=== PATIENT | female | born 1985 | race Caucasian/White ===

== ENCOUNTER 2022-06-25 11:34 | Observation (INO) | payer OTHER, SELFPAY ==
[2022-06-25] VITALS (8 sets, daily range): BP systolic 105–110; BP diastolic 70–71; PULSE 86–106; O2SAT 98–100; BMI 25.4
--- NOTE | 2022-06-25 12:22 | OBADM ---
This patient, Angelique Segovia, admitted to the OB room [facility] for observation. Patient/family oriented to hospital policies and general routines including ID bracelet, bed and alarms, visiting hours, pain management, procedures, bathroom and other care routines, personal items, smoking policy, room service/diet, and visiting hours. Patient/Family are encouraged to report perceived risks to care and to ask questions if they do not understand what they are told or what they should do.
--- NOTE | 2022-06-25 12:26 | PC.NURSE ---
1220--Report given to Kirit Helton CNM.VSS.NST appropriate for gestation. ED observation requested.
--- NOTE | 2022-06-25 13:00 | PC.NURSE ---
1240--To ED per wheelchair. Pt tolerates well.
--- NOTE | 2022-07-12 08:14 | PM.OBTRLD ---
OB - Triage/Final Diagnosis Visit Information Comments/Additional reasons for admission: I have assessed the risk for this patient, Angelique Segovia, and determined that she would benefit from observation care. Final Diagnosis (1) Chest pain: Code(s): R07.9 - Chest pain, unspecified Status: Acute
== END 2022-06-25 12:40 | disposition other institution (70) ==
LOC: ANHOBPP 11:42
PROVIDERS: Admitting Provider Obstetrics & Gynecology; Visit Provider Obstetrics & Gynecology
DX: O26.893 Other specified pregnancy related conditions, third trimester (principal); R07.9 Chest pain, unspecified; Z3A.30 30 weeks gestation of pregnancy
CPT/HCPCS: 59025; G0378; G0379

== ENCOUNTER 2022-06-25 12:44 | Emergency (ER) | payer OTHER, SELFPAY ==
[2022-06-25 13:07] VITALS: BP 120/88; PULSE 96; RESP 18; TEMP 36.8; O2SAT 100
[2022-06-25 14:29] LABS: Basophils Absolute Auto 0.1 K/mm3 (0.0-0.1); Basophils Percent Auto 0.5 % (0.2-1.2); Eosinophils Absolute Auto 0.1 K/mm3 (0-0.3); Eosinophils Percent Auto 0.8 % (0-4.4); Hematocrit 38.2 % (37.0-47.0); Hemoglobin 12.4 g/dL (12.0-15.0); Immature Granulocyte Absolute 0.37 K/mm3 (0.00-0.031); Immature Granulocyte Percent A 2.9 % (0-0.5); Lymphocytes Absolute Auto 2.15 K/mm3 (0.9-3.2); Lymphocytes Percent Auto 16.8 % (18.3-44.2); Mean Corpuscular HGB Conc 32.5 g/dl (32-36); Mean Corpuscular Hemoglobin 31.4 pg (26-34); Mean Corpuscular Volume 96.7 fl (80-100); Mean Platelet Volume 10.2 fl (7.4-10.4); Monocytes Absolute Auto 1.1 K/mm3 (0.1-0.6); Monocytes Percent Auto 8.3 % (2.6-8.5); Neutrophils Percent Auto 70.7 % (45.5-73.1); Platelet Count Result 245 k/mm3 (150-375); Red Blood Count 3.95 M/mm3 (4.2-5.4); White Blood Count 12.8 K/mm3 (4.5-10.0)
[2022-06-25 14:42] LABS: Prothrombin Time 12.6 Seconds (11.1-14.7)
[2022-06-25 14:43] LABS: Alanine Aminotransferase 15 U/L (6-35); Albumin Level 3.8 g/dL (3.5-5.1); Alkaline Phosphatase 79 U/L (38-126); Anion Gap 7 mmol/L (8-16); Aspartate Amino Transferase 21 U/L (14-36); Bilirubin,Total 0.4 mg/dL (0.2-1.3); Blood Urea Nitrogen 5 mg/dL (7-17); Calcium 8.8 mg/dL (8.4-10.2); Carbon Dioxide 22 mmol/L (22-30); Chloride 103 mmol/L (98-107); Estimated CRCL calculation 162 ml/min; Estimated Glomerular Filt Rate > 60; Glucose 68 mg/dL (65-110); Lipase 117 U/L (23-300); Partial Thromboplastin Time 26.2 SECONDS (22.3-36.8); Potassium 3.8 mmol/L (3.4-5.0); Sodium 132 mmol/L (137-145)
[2022-06-25 14:53] LABS: Appearance Urine Clear (Clear); Bacteria Urine None Seen /hpf; Bilirubin Urine Negative (Negative); Blood Urine Negative (Negative); Color Urine Yellow (Yellow); Glucose Urine UA Negative (Negative); Ketones Urine Negative (Negative); Leukocyte Esterase Ur Trace LEU/UL (Negative); Need Manual Microscopic Reviewed; Nitrate Urine Negative (Negative); Non Pathogenic Casts 0-2; Protein Urine Negative (Negative); RBC Urine 0-2 /hpf (0-2); Specific Grav Ur 1.003 (1.001-1.035); Squamous Epithelial Cell Urine Occasional /hpf (Few); Urobilinogen Urine 0.2 mg/dL (<2.0); WBC Urine 0-5 /hpf; pH Urine 7.5 (5.0-9.0)
[2022-06-25 14:59] LABS: Add Urine Microscopic? YES
--- NOTE | 2022-06-25 16:24 | PC.NURSE ---
Patient came up to this RN and stated that she is leaving because there are other people here that are more emergent than me . Patient informed to come back if anything changes. Patient ambulated out of department without assistance.
== END 2022-06-25 17:00 | disposition left against medical advice (07) ==
PROVIDERS: Emergency Provider General Practice
DX: M54.9 Dorsalgia, unspecified (principal)
CPT/HCPCS: 36415; 80053; 81001; 83690; 85025; 85610; 85730; 99199

== ENCOUNTER 2022-08-29 08:35 | Inpatient (IN) | payer OTHER, SELFPAY ==
[2022-08-29] VITALS (181 sets, daily range): BP systolic 87–131; BP diastolic 20–93; PULSE 53–148; RESP 16–19; TEMP 36.6–36.9; O2SAT 93–100; BMI 28.5
--- NOTE | 2022-08-29 08:59 | LDADM ---
This patient, Angelique Segovia, was admitted to Labor/Delivery/Recovery 107 on 08/29/22 at 08:35. Plans for labor, pain management and were discussed with patient. Patient/family oriented to hospital policies and general routines including ID bracelet, bed and alarms, visiting hours, pain management, procedures, bathroom and other care routines, personal items, smoking policy, room service/diet and guest tray routines, security routines, and visiting hours. Patient/Family are encouraged to report perceived risks to care and to ask questions if they do not understand what they are told or what they should do. See OBIX for further documentation.
[2022-08-29 09:15] LABS: Basophils Absolute Auto 0.1 K/mm3 (0.0-0.1); Basophils Percent Auto 0.5 % (0.2-1.2); Eosinophils Absolute Auto 0.2 K/mm3 (0-0.3); Eosinophils Percent Auto 1.6 % (0-4.4); Hematocrit 36.8 % (37.0-47.0); Hemoglobin 12.4 g/dL (12.0-15.0); Immature Granulocyte Percent A 1.1 % (0-0.5); Lymphocytes Absolute Auto 1.85 K/mm3 (0.9-3.2); Lymphocytes Percent Auto 19.7 % (18.3-44.2); Mean Corpuscular HGB Conc 33.7 g/dl (32-36); Mean Corpuscular Hemoglobin 32.4 pg (26-34); Mean Corpuscular Volume 96.1 fl (80-100); Mean Platelet Volume 12.3 fl (7.4-10.4); Monocytes Absolute Auto 0.8 K/mm3 (0.1-0.6); Monocytes Percent Auto 8.1 % (2.6-8.5); Neutrophils Absolute Auto 6.5 K/mm3 (1.3-6.7); Platelet Count Result 167 k/mm3 (150-375); Red Blood Count 3.83 M/mm3 (4.2-5.4); Red Cell Distribution Width 12.7 % (11.5-14.5); White Blood Count 9.4 K/mm3 (4.5-10.0)
[2022-08-29] MEDS: LACTATED RINGERS 1,000 ML 125 ML IV CONT (09:25)
[2022-08-29] MEDS: OXYTOCIN 30 UNITS/NS 500 ML 30 UNITS/500 ML BAG IV CONT (09:26)
--- NOTE | 2022-08-29 09:50 | WPDOBADMIT ---
Obstetrics - Admit Note Admission Note: record reviewed. No pertinent additions to the history and/or any subsequent changes in the physical findings that are not consistent with the expected course of the were found. IOL, SVE /-2, pitocin, plan AROM after epidural Additions to the history and/or subsequent changes in the physical findings follow. None.
[2022-08-29 11:21] LABS: Rapid Plasma Reagin Non-Reactive (NonReactive)
--- NOTE | 2022-08-29 13:17 | WPDANESEPP ---
Anes - Eval Pre Procedure Procedure: labor epidural Date/Time: 08/29/22 13:17 Surgeon: farhan Preop Diagnosis: pain during labor Pre Op Diagnosis: IOL Patient Data Age: 36 Gender: F Height: 1.73 m Weight: 85 kg Last Vital Signs Temp 36.6 C 08/29/22 09:48 Pulse 87 08/29/22 13:01 Resp 16 08/29/22 09:48 BP 124/72 08/29/22 13:01 Pulse Ox 99 08/29/22 13:16 O2 Del Method Room Air 08/29/22 08:58 Allergies Allergy/AdvReac Type Severity Reaction Status Date / Time No Known Allergies Allergy Unverified 01/29/22 10:00 Home Medications Medication Instructions Recorded Confirmed Type albuterol sulfate 90 mcg/actuation 2 puff inhalation QID PRN Wheezing 08/17/22 08/17/22 History aerosol inhaler cetirizine 10 mg tablet (Zyrtec) 10 mg PO DAILY 08/17/22 08/17/22 History prenat.vits,sneha,[id number] 1 tablet PO HS 08/17/22 08/17/22 History Laboratory Tests 08/29/22 08:43 WBC 9.4 K/mm3 (4.5-10.0) RBC 3.83 L M/mm3 (4.2-5.4) Hgb 12.4 g/dL (12.0-15.0) Hct 36.8 L % (37.0-47.0) MCV 96.1 fl (80-100) MCH 32.4 pg (26-34) MCHC 33.7 g/dl (32-36) RDW 12.7 % (11.5-14.5) Plt Count 167 k/mm3 (150-375) MPV 12.3 H fl (7.4-10.4) Immature Gran % (Auto) 1.1 H % (0-0.5) Neut % (Auto) 69.0 % (45.5-73.1) Lymph % (Auto) 19.7 % (18.3-44.2) [place] % (Auto) 8.1 % (2.6-8.5) Eos % (Auto) 1.6 % (0-4.4) Baso % (Auto) 0.5 % (0.2-1.2) Lymph # (Auto) 1.85 K/mm3 (0.9-3.2) [place] # (Auto) 0.8 H K/mm3 (0.1-0.6) Eos # (Auto) 0.2 K/mm3 (0-0.3) Baso # (Auto) 0.1 K/mm3 (0.0-0.1) Abs Immat Gran (auto) 0.10 H K/mm3 (0.00-0.031) Absolute Neuts (auto) 6.5 K/mm3 (1.3-6.7) Absolute Nucleated RBC 0.0 K/mm3 (0.0-0.012) Nucleated RBC % 0.0 % (0.0-0.2) RPR Non-reactive (NonReactive) Blood Type O Positive Antibody Screen Negative Patient hx anesthesia problems: none Family hx anesthesia problems: none Results Review: All pre-operative results and documents have been reviewed as part of the pre-operative evaluation. [facility] Past Medical History Medical History (Updated 07/12/22 @ 08:15 by Armida Beth CNM) Suppression of menses Family History Family History (Updated 08/17/22 @ 15:44 by Chely Lang RN) Grandparent Hypertension Diabetes mellitus Social History Social History (Updated 01/29/22 @ 10:01 by Renae Boudreaux MA) Smoking status: Never smoker Alcohol intake: never Substance use: never Substance use type: does not use Lack of Transportation: No Lack of Food: Never True Current Housing: I Have Housing Concerned About Future Housing: No Difficulty Paying Gas/Electric Bills: No Difficulty Paying for Meds: No Currently Unemployed: No Education: Master's Degree or Higher Difficulty w/ Childcare or Family Care: No Living arrangements: with family Occupation/Education: occupation Gender identity (if verbalized by the patient): Female Spiritual care concerns: No Exam Day of Procedure 08/29/22 13:17
--- NOTE | 2022-08-29 17:52 | PM.OBTRLD ---
OB - Triage/Final Diagnosis Visit Information Comments/Additional reasons for admission: I have assessed the risk for this patient, Angelique Segovia, and determined that she would benefit from observation care. Evaluation Laboratory results: Laboratory Tests 08/29/22 08:43 WBC 9.4 RBC 3.83 L Hgb 12.4 Hct 36.8 L MCV 96.1 MCH 32.4 MCHC 33.7 RDW 12.7 Plt Count 167 MPV 12.3 H Immature Gran % (Auto) 1.1 H Neut % (Auto) 69.0 Lymph % (Auto) 19.7 [place] % (Auto) 8.1 Eos % (Auto) 1.6 Baso % (Auto) 0.5 Lymph # (Auto) 1.85 [place] # (Auto) 0.8 H Eos # (Auto) 0.2 Baso # (Auto) 0.1 Abs Immat Gran (auto) 0.10 H Absolute Neuts (auto) 6.5 Absolute Nucleated RBC 0.0 Nucleated RBC % 0.0 RPR Non-reactive Blood Type O Positive Antibody Screen Negative Vital signs: Vital Signs - 24 hr 08/29/22 08:58 08/29/22 09:25 08/29/22 09:31 Temperature Pulse Rate 87 112 H Respiratory Rate Blood Pressure 128/78 106/68 Pulse Oximetry Oxygen Delivery Room Air 08/29/22 09:48 08/29/22 09:53 08/29/22 09:58 Temperature 36.6 C Pulse Rate Respiratory Rate 16 Blood Pressure Pulse Oximetry 99 99 99 Oxygen Delivery 08/29/22 10:00 08/29/22 10:03 08/29/22 10:08 Temperature Pulse Rate 93 Respiratory Rate Blood Pressure 118/82 Pulse Oximetry 99 100 Oxygen Delivery 08/29/22 10:13 08/29/22 10:18 08/29/22 10:23 Temperature Pulse Rate Respiratory Rate Blood Pressure Pulse Oximetry 99 99 99 Oxygen Delivery 08/29/22 10:28 08/29/22 10:30 08/29/22 10:33 Temperature Pulse Rate 96 Respiratory Rate Blood Pressure 120/77 Pulse Oximetry 98 99 Oxygen Delivery 08/29/22 10:38 08/29/22 10:43 08/29/22 10:48 Temperature Pulse Rate Respiratory Rate Blood Pressure Pulse Oximetry 97 98 97 Oxygen Delivery 08/29/22 10:53 08/29/22 10:58 08/29/22 11:01 Temperature Pulse Rate 84 Respiratory Rate Blood Pressure 107/67 Pulse Oximetry 99 99 Oxygen Delivery 08/29/22 11:03 08/29/22 11:08 08/29/22 11:13 Temperature Pulse Rate Respiratory Rate Blood Pressure Pulse Oximetry 99 98 100 Oxygen Delivery 08/29/22 11:18 08/29/22 11:23 08/29/22 11:28 Temperature Pulse Rate Respiratory Rate Blood Pressure Pulse Oximetry 100 100 100 Oxygen Delivery 08/29/22 11:31 08/29/22 11:33 08/29/22 11:36 Temperature Pulse Rate Respiratory Rate Blood Pressure 116/82 Pulse Oximetry 99 99 Oxygen Delivery 08/29/22 11:36 08/29/22 11:41 08/29/22 11:46 Temperature Pulse Rate Respiratory Rate Blood Pressure Pulse Oximetry 100 99 99 Oxygen Delivery 08/29/22 11:51 08/29/22 11:56 08/29/22 12:01 Temperature Pulse Rate Respiratory Rate Blood Pressure Pulse Oximetry 100 100 98 Oxygen Delivery 08/29/22 12:02 08/29/22 12:06 08/29/22 12:11 Temperature Pulse Rate 107 H Respiratory Rate Blood Pressure 87/20 L Pulse Oximetry 100 100 Oxygen Delivery 08/29/22 12:18 08/29/22 12:23 08/29/22 12:28 Temperature Pulse Rate Respiratory Rate Blood Pressure Pulse Oximetry 99 98 99 Oxygen Delivery 08/29/22 12:31 08/29/22 12:33 08/29/22 12:38 Temperature Pulse Rate Respiratory Rate Blood Pressure 126/93 H Pulse Oximetry 99 99 Oxygen Delivery 08/29/22 12:43 08/29/22 12:48 08/29/22 12:53 Temperature Pulse Rate Respiratory Rate Blood Pressure Pulse Oximetry 99 99 99 Oxygen Delivery 08/29/22 12:56 08/29/22 13:01 08/29/22 13:06 Temperature Pulse Rate 87 Respiratory Rate Blood Pressure 124/72 Pulse Oximetry 99 100 100 Oxygen Delivery 08/29/22 13:11 08/29/22 13:16 08/29/22 13:21 Temperature Pulse Rate Respiratory Rate Blood Pressure Pulse Oximetry 98 99 98 Oxygen Delivery 08/29/22 13:25 08/29/22 13:28 05
--- NOTE | 2022-08-29 17:52 | PM.OBPNLAB ---
Pain Control Date/time seen: 08/29/22 17:52 comfortable with epidural, sve /-2 ATOM small amount of clear, odorless fluid, anticipate vaginal delivery
--- NOTE | 2022-08-29 21:14 | PM.OBPRVD ---
OB - Delivery Note Procedure Delivery date: 08/29/22 Procedure: Induction method: AROM and Per Pitocin Protocol Delivery augmentation: Rupture of Membranes Delivery monitor: External FHT and External Uterine Route of delivery: Episiotomy description: None Laceration Description: Perineal - 1st Degree Specimen: No Quantitative Blood Loss (ml): 165 Anesthesia type: Epidural Disposition: Floor Baby Date of : 08/29/22 Time of : 20:55 Weeks of gestation at delivery: 39 Infant gender: Male presentation: vertex position: Left Occiput Anterior Placenta delivery description: Spontaneous Cord Vessel Description: 3 Vessels, True Knot, Clamped/Cut and Delayed Cord Clamping score one minute: 8 score five minutes: 9 Narrative: mother and baby skin to skin in stable condition
[2022-08-29] MEDS: IBUPROFEN 600 MG TABLET PO (23:33)
[2022-08-30 00:08] VITALS: BP 122/70; PULSE 82; RESP 16; TEMP 37.4; O2SAT 96
[2022-08-30] MEDS: ACETAMINOPHEN 325 MG TABLET 650 MG PO ×3 (00:27→15:34)
[2022-08-30] MEDS: IBUPROFEN 600 MG TABLET PO ×3 (05:13→20:07)
[2022-08-30 05:54] LABS: Hematocrit 33.5 % (37.0-47.0); Hemoglobin 11.3 g/dL (12.0-15.0)
--- NOTE | 2022-08-30 06:56 | PM.OBPNVD ---
OB - PN: Subj Subjective Date/time seen: 08/30/22 06:56 s/p vaginal delivery day 1, no complaints, breast feeding OB - PN: Obj Data Labs 08/30/22 05:10 Labs: Laboratory Results - last 24 hr 08/29/22 08/30/22 08:43 05:10 WBC 9.4 RBC 3.83 L Hgb 12.4 11.3 L Hct 36.8 L 33.5 L MCV 96.1 MCH 32.4 MCHC 33.7 RDW 12.7 Plt Count 167 MPV 12.3 H Immature Gran % (Auto) 1.1 H Neut % (Auto) 69.0 Lymph % (Auto) 19.7 [place] % (Auto) 8.1 Eos % (Auto) 1.6 Baso % (Auto) 0.5 Lymph # (Auto) 1.85 [place] # (Auto) 0.8 H Eos # (Auto) 0.2 Baso # (Auto) 0.1 Abs Immat Gran (auto) 0.10 H Absolute Neuts (auto) 6.5 Absolute Nucleated RBC 0.0 Nucleated RBC % 0.0 RPR Non-reactive Blood Type O Positive Antibody Screen Negative OB - PN A/P Time Spent With Patient Time: Total time spent is greater than 50% in coordination of care (as documented) at patient's floor/unit and/or counseling patient:
--- NOTE | 2022-08-30 06:57 | P.PNOB_ITS ---
OB - PN: Subj Subjective Date/time seen: 08/30/22 06:57 no complaints, OB - PN: Obj Data Labs 08/30/22 05:10 Labs: Laboratory Results - last 24 hr 08/29/22 08/30/22 08:43 05:10 WBC 9.4 RBC 3.83 L Hgb 12.4 11.3 L Hct 36.8 L 33.5 L MCV 96.1 MCH 32.4 MCHC 33.7 RDW 12.7 Plt Count 167 MPV 12.3 H Immature Gran % (Auto) 1.1 H Neut % (Auto) 69.0 Lymph % (Auto) 19.7 [place] % (Auto) 8.1 Eos % (Auto) 1.6 Baso % (Auto) 0.5 Lymph # (Auto) 1.85 [place] # (Auto) 0.8 H Eos # (Auto) 0.2 Baso # (Auto) 0.1 Abs Immat Gran (auto) 0.10 H Absolute Neuts (auto) 6.5 Absolute Nucleated RBC 0.0 Nucleated RBC % 0.0 RPR Non-reactive Blood Type O Positive Antibody Screen Negative OB - PN A/P Plan day: 1 Time Spent With Patient Time: Total time spent is greater than 50% in coordination of care (as documented) at patient's floor/unit and/or counseling patient: Review of Systems Review of Systems: All systems reviewed & are unremarkable except as noted in HPI and below Exam Const: General: cooperative and healthy appearing Chest: Chest palpation & inspection: normal inspection of the chest Resp: Effort & Inspection: normal respiratory effort GI: Inspection: normal to inspection Skin: General skin exam: normal color Extrem: Right lower extremity: normal to inspection Left lower extremity: normal to inspection Psych: Appearance: grossly normal
[2022-08-30 08:15] VITALS: BP 111/71; PULSE 83; RESP 16; TEMP 36.6; O2SAT 99
--- NOTE | 2022-08-30 08:15 | WPDANLDPN2 ---
Anes-Prog Note L&D Date/Time: 08/30/22 08:15 Neuro status: Neuro function grossly intact. Cardiovascular status: normal Respiratory status: normal Airway patency: baseline Mental status: baseline Post-Op hydration status: normal Vital Signs: Last Vital Signs Temp 37.4 C 08/30/22 00:08 Pulse 82 08/30/22 00:08 Resp 16 08/30/22 00:08 BP 122/70 08/30/22 00:08 Pulse Ox 96 08/30/22 00:08 O2 Del Method Room Air 08/29/22 08:58 Pain score (VAS): 0 I/O: Intake & Output 08/29/22 08/30/22 08/30/22 23:59 07:59 15:59 Output Total 100 Balance -100 Post-procedural complaints: none Patient feedback: Patient satisfied with anesthetic care.
[2022-08-30] MEDS: DOCUSATE SODIUM 100 MG CAPSULE PO ×2 (09:48→16:50)
[2022-08-30] MEDS: LORATADINE 10 MG TABLET PO (09:48)
--- NOTE | 2022-08-30 11:00 | PC.NURSE ---
[id number] Introductions were made, then consulted with patient to assess needs related to . Mother led the conversation with her?plans to feed?her infant and the?experience so far. Resources provided for inpatient and outpatient services with name written on the white board. Mother voiced understanding of information and request assistance at this time. Mother works well with her infant with encouragement and education. Encouraged understanding of the benefits of skin to skin (demonstrating unwrapping infant and placing upright on her chest), stimulating with massage touch, changing positions to encourage wakefulness, burping, how to watch for early feeding cues, responsive feeding, feeding on demand (aiming for 8-12 times in 24 hours, about every 2-3 hours), milk production, building/maintaining a milk supply, duration of feeding, signs of adequate intake/output and how to record on the feeding sheet. is gaggy with actions that are indicative of having fluid or mucous that needs to be cleared out. Reviewed positioning and ear, shoulder, hip alignment, supporting the breast to facilitate a deep latch, asymmetrical latch (off-center), leading with the chin with a big, open, wide gape and body close to mother. Infant latched optimally to the left breast in football position. Education given to mother of how to visualize suck/swallow ratios and listen for drinking at the breast. Infant latched effectively, had a few sucks, demonstrated gagging, then stopped . Nipple care reviewed with optimal latch and good positioning. Reviewed good handwashing when or touching the breast/nipples to prevent infection. Resources used to facilitate learning were used with the visual handout, tool, mom and baby guide. Mother voiced understanding of skin to skin, stimulating with massage touch, changing positions, burping, responsive feedings, hand expressed colostrum, talking to infant to encourage if it has been 2 -2.5 hours since the start of the last , to call if infant does not latch, or if there is discomfort with . Resources provided for inpatient service with name written on the white board and instructions on using the call light. Parents voiced understanding of information, demonstrated learning and will call if there is a request for assistance. Reported to the primary RN.
[2022-08-30 11:35] VITALS: BP 129/74; PULSE 119; RESP 16; TEMP 36.9; O2SAT 98
[2022-08-30 20:05] VITALS: BP 117/70; PULSE 101; RESP 16; TEMP 36.8; O2SAT 99
[2022-08-30] MEDS: MULTIVIT/MIN/PREN/FOL AC/IRON TABLET 1 TAB PO (20:09)
[2022-08-31] MEDS: ACETAMINOPHEN 325 MG TABLET 650 MG PO ×2 (05:11→12:01)
--- NOTE | 2022-08-31 08:19 | PM.OBPNVD ---
OB - PN: Subj Subjective Date/time seen: 08/31/22 08:19 s/p vaginal delivery day 2, no complaints, OB - PN: Obj Data Labs 08/30/22 05:10 OB - PN A/P Time Spent With Patient Time: Total time spent is greater than 50% in coordination of care (as documented) at patient's floor/unit and/or counseling patient: Review of Systems Review of Systems: All systems reviewed & are unremarkable except as noted in HPI and below Exam Const: General: cooperative, healthy appearing and comfortable Resp: Effort & Inspection: normal respiratory effort Extrem: Right lower extremity: normal to inspection Left lower extremity: normal to inspection
--- NOTE | 2022-08-31 08:21 | P.DS_ITS ---
DS: Admitting Diagnosis Discharge Date 08/31/22 Admitting Diagnosis IOL DS: Discharge Diagnosis Discharge Diagnosis (1) Vaginal delivery: Code(s): O80 - Encounter for full-term uncomplicated delivery Status: Acute OB - DS: Summary OB Procedures : None OB Procedures Intrapartum: Spontaneous Vag Delivery OB Procedures: : None Time Spent with Patient Time attestation: Total time spent providing and/or coordinating discharge services: Discharge Plan Discharge Attending physician on discharge: Carmencita Olivera Discharging Clinician: Saira Ureña Patient Disposition: Home, Self-Care Activity: pelvic rest Diet: regular Patient Instructions: Antibiotic Form Stand Alone Forms: General Discharge Information Follow-up/Referrals: Saira Ureña CNM [Certified Nurse Commissioned Fire Officer] - 4 Weeks Discharge Medications: New ibuprofen 600 mg Tablet 600 mg PO Q6H PRN (Reason: Cramping) Qty: 30 0RF Continued cetirizine [Zyrtec] 10 mg Tablet 10 mg PO DAILY #2 Tablet 1 tablet PO HS albuterol sulfate 90 mcg/actuation Hfa Aerosol Inhaler 2 puff INHALATION QID PRN (Reason: Wheezing) Date of admission: 08/29/22 08:35 Primary Care Provider: PHYSICIAN,ASSEMBLY ADJUSTER Admitting Provider: Carmencita Olivera Attending physician on admission: Carmencita Olivera Condition: Stable
[2022-08-31 08:25] VITALS: BP 113/73; PULSE 82; RESP 16; TEMP 37; O2SAT 99
[2022-08-31] MEDS: LORATADINE 10 MG TABLET PO (09:31)
[2022-08-31] MEDS: IBUPROFEN 600 MG TABLET PO (09:31)
--- NOTE | 2022-08-31 11:31 | PC.NURSE ---
Patient viewed the discharge video Mother & Baby Care, The First Two Weeks . Patient was given the opportunity and encouraged to ask questions. Patient verbalized understanding of information shared and has been given the mother/baby guide for home reference.
--- NOTE | 2022-08-31 14:30 | PC.NURSE ---
[id number] Insurance covered breast pump provided due to mother's request. Instructions given on cleaning, care, usage, that there should be no pain, pumping schedule for milk production, collection, and storage of human milk. Patient was assessed for correct placement, flange size, to pump for comfort and nipple stretching/stimulation for adequate milk production every 3 hours (8 times in 24 hours) 1-2 times at night at minimum. Mother doesn't plan to pump for several weeks. Mother is confident with , feeding appropriately for growth of and understands stimulating infant to eat if needed. Infant has had appropriate feedings in the last 24 hours meets the outcomes for weight, output and jaundice at this time. Reinforced understanding of milk production, transition of milk, signs of adequate intake, transition of stool, prevention/relief of engorgement, responsive watching for feeding cues, the different methods of stimulating infant to breastfeed 2-3 hours after the start of the last feeding, community resources, medication information reviewed per [employer] and when to call a provider using the resource of the mom and baby guide. Mother voiced understanding of the education shared. Reported to the primary RN.
[2022-09-01 09:25] VITALS: BP 115/70; PULSE 89; RESP 20; TEMP 37.6; O2SAT 98
== END 2022-08-31 12:10 | disposition home or self-care (01) | DRG 807 ==
LOC: ANHLDR 08:37 → ANHOB2 08-30 00:05
PROVIDERS: Advanced Practice Midwife; Admitting Provider Obstetrics & Gynecology; Visit Provider Obstetrics & Gynecology
DX: O69.2XX0 Labor and delivery complicated by other cord entanglement, with compression, not applicable or unspecified (principal); Z37.0 Single live birth; Z3A.39 39 weeks gestation of pregnancy; O70.0 First degree perineal laceration during delivery
CPT/HCPCS: 36415; 85014; 85018; 85025; 86592; 86850; 86900; 86901; A9270; J2590; J2795; J7120

== ENCOUNTER 2024-09-29 22:36 | Inpatient (IN) | payer OTHER, SELFPAY ==
[2024-09-29] VITALS (7 sets, daily range): BP systolic 117; BP diastolic 65; PULSE 107–119; O2SAT 97–98; BMI 28.5
--- OUTSIDE RECORDS SUMMARY | 2024-09-29 23:06 | XMS_ITS | Data Portability ---
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 Discussed plan. [email or web address] Not available 09/08/2024 09:54:01 09/16/2024 09/16/2024 Patient is 36___weeks . Discussed plan. [email or web address] Not available 09/16/2024 13:50:03 09/23/2024 09/23/2024 Patient is _37__weeks . Discussed plan. Not available 09/23/2024 19:06:09 Plan of Treatment Reminders Order Date Submit Date Provider Last Modified By Organization Details Last Modified Time Details Appointments OB ROUTINE 2024 01:30P Naina Ureña CNM Not available Not available Not available OB ROUTINE 2024 01:15P Naina Ureña CNM Not available Not available Not available Lab streptoco ccus group B, culture, unspecifi ed specimen 2024 025 [facility] (Lab), [address], [place], [address], 09/19/2024 15:09:48 Referral None recorded. Procedures None recorded. Surgeries None recorded. Imaging US, obstetric , limited 2024 025 PATRICIO [place], [address], [address], [place], [address], 09/16/2024 21:15:13 US, obstetric , limited 2024 025 [email or web address] [place], [address], [place], [address], 09/07/2024 21:14:53 Medication Orders None recorded. Patient TargetsNo targets recorded. Patient InstructionsNo instructions recorded. Reason for Referral None Reported. Results Created Date Observation Date Name Description Value Unit Range Abnormal Flag Note LastModifiedBy Organization Detail LastModifiedTime 09/17/1909/16/2024 CULTU RE: GROUP B STREP SCREE N, REFLE X SUSCE PTIBI LITY result report SEE RESULT S BELOW Test: Cultu re: Group B Strep , Refle x Susce ptibi lity ([facility]/ [facility]/K [facility] ) Speci men Sourc e: Vagin a/Rec melony Speci men Type: Vagin al/Re ctal Speci men Date: 2024 1340 Resul t Date: 2024 1405 Resul t Statu s: Final resul t Abnor mal: No Resul ting Lab: [facility] [address] [facility] [address] Tel: CULTU RE ----- ----- ----- --- No Group B strep isola chris at 2 days (teri ctive broth enhan cemen t) Not Available [facility] (Lab) [address], [place], [address], 09/19/2024 15:09:48 08/27/1908/26/2024 US, obste tric, follo w-up No observ ation record ed. [facility] [address], [place], [address], 08/26/2024 13:35:55 08/27/1908/26/2024 US, obste tric, follo w-up No observ ation record ed. [email or web address] [address], [place], [address], 09/10/2024 17:33:07 09/08/19 25 09/07/2024 US, obste tric, limit ed No observ ation record ed. [email or web address] [place] [address], [place], [address], 09/07/2024 18:17:12 09/08/19 25 09/07/2024 US, obste tric, limit ed No observ ation record ed. [email or web address] [address], [place], [address], 09/10/2024 18:14:56 09/17/19 25 09/16/2024 US, obste tric, limit ed No observ ation record ed. [email or web address] [place] [address], [place], [address], 09/16/2024 17:26:41 09/17/1909/16/2024 US, obste tric, follo w-up No observ ation record ed. [address], [place], [address], 09/17/2024 11:50:24 Result Notes None recorded. Problems Name Problem SNOMED Code Status Onset Date Resolution Date Notes Provider Name and Address Organization Details Recorded Time Pregnanc y 57507560 Completed 202109/06/2022 [address], [place] - [facility] 3 16:44:00 Mild asthma 877270405 Active albutero l prn [facility] Aramis Ureña CNM [address], [place], [address], [facility] 4 13:25:51 Mild asthma 838841383 Completed albutero l prn Court Mei null, [facility] 3 16:43:53 History of back pain 9202285138 35197 Active after last pregnanc y (6 mo PT to heal) Aramis Ureña CNM [address], [place], [address], [facility] 4 13:24:56 Mild asthma 909190674 Active albutero l prn zyrte Aramis Ureña CNM [address], [place], [address], [facility] 4 13:25:51 Past pregnanc y history of gestatio nal hyperten nadeem 593408027 Active 39 weeks Aramis Ureña CNM [address], [place], [address], [facility] 4 13:26:18 Subchori onic hematoma 303489726 Active mean 46 mm [facility] referral faxed 04/07 schedule d [facility] 04/30/24 130 Level II & Consult 05/27 Level II [facility] Aramis Ureña CNM [address], [place], [address], [facility] 5 10:16:25 Problem Notes None recorded. Procedures Surgical History Date Name Laterality Status Provider Name and Address Organization Details Recorded Time 2 Date of Last Pap Smear completed Coleen Sullivan [facility] 02/02/2022 09:48:04 9 extraction of wisdom tooth completed Coleen Sullivan [facility] 02/02/2022 09:51:41 1 operation on oral cavity completed Coleen Sullivan [facility] 02/02/2022 09:51:19 Imaging Results None recorded. Procedure Notes None recorded. Medical Equipment None Reported. Allergies No known drug allergies Medications Name Sig Start Date Stop Date Status Note LastModified by Organization Details LastModified Time ondansetron HCl [address] 1 under tongue 4 times per day as needed 2023 active Not Available Not Available Not Avai lable ondansetron HCl 4 mg tablet Take 1 tablet every 4-6 hours by oral route as needed. 04/03 completed Not Available Not Available Not Available triamcinolo ne acetonide 0.5 % topical ointment APPLY TO AFFECTED AREA 3 TIMES A DAY 09/26 completed Not Available Not Available Not Available ondansetron 8 mg disintegrat ing tablet take 1 tablet 4 times per day as needed 07/29 completed Not Available Not Available Not Available pantoprazol e 40 mg tablet,zahida yed release TAKE 1 TABLET BY MOUTH EVERY DAY active Not Available Not Available No t Available clobetasol 0.05 % topical ointment APPLY TO AFFECTED AREA 2 TIMES DAILY APPLY FOR UP TO 2 WEEKS 09/26 completed Not Available Not Available Not Available ibuprofen 600 mg tablet TAKE 1 TABLET BY MOUTH EVERY 6 HOURS NEEDED FOR CRAMPING 09/26 completed Not Available Not Available Not Available albuterol sulfate HFA 90 mcg/actuati on aerosol inhaler INHALE 2 PUFFS BY MOUTH EVERY 4 HOURS NEEDED FOR WHEEZING (MAY USE 2 PUFFS PRIOR TO EXERCISE) active Not Available Not Available No t Available fluticasone propionate 50 mcg/actuati on nasal spray,suspe nsion SPRAY 2 (TWO) SPRAYS INTO EACH NOSTRIL ONCE DAILY 02/02 completed Not Available Not Available Not Available cyclobenzap rine 5 mg tablet TAKE 1 TABLET 3 TIMES A DAY BY ORAL ROUTE. 09/26 completed Not Available Not Available Not Available clobetasol 0.05 % shampoo USE TO WASH HAIR ONCE DAILY 09/26 completed Not Available Not Available Not Available active Not Available Not Avai lable Not Available Zyrtec active Not Available Not Availa ble Not Available Tri-Lo-Vernell ia 0.18 mg/0.215 mg/0.25 mg-0.025 mg tablet TAKE 1 TABLET BY MOUTH EVERY DAY 03/21 completed Not Available Not Available Not Available Vitals Date Recorded Body height Body mass index (BMI) Body weight Systolic blood pressure Diastolic blood pressure Provider Name and Address Organization Details Last Updated DateTime 09/08/2024 172.72 cm 27.7 kg/m2 09769.81 g 102 mm[Hg] 67 mm[Hg] Coleen Sullivan [facility] 5 09:41:10 Date Recorded Body height Body mass index (BMI) Body weight Systolic blood pressure Diastolic blood pressure Provider Name and Address Organization Details Last Updated DateTime 09/16/2024 172.72 cm 28.7 kg/m2 11323.96 g 109 mm[Hg] 72 mm[Hg] Coleen Sullivan [facility] 5 12:05:13 Date Recorded Body weight Body mass index (BMI) Body height Systolic blood pressure Diastolic blood pressure Provider Name and Address Organization Details Last Updated DateTime 09/23/2024 79210.95 793 g 28.7 kg/m2 172.72 cm 101 mm[Hg] 61 mm[Hg] Coleen Sullivan [facility] 5 18:35:59 Social History Question Answer Notes LastModified by Organizat ion Details LastModified Time Tobacco Smoking Status Never Smoker Coleen Sullivan [facility] 04/18/2022 11:25:42 Do You Have An Advance Directive? No [email or web address] Information n ot available 02/02/2022 If You Are , What Was Your Level Of Alcohol Consumption Prior To ? Occasional [email or web address] Information not available 04/18/2022 How Many Years Have You Consumed Alcohol? 12 [email or web address] Information not available 04/18/2022 Are You Blind Or Do You Have Difficulty Seeing? No [email or web address] Information n ot available 02/02/2022 What Is Your Level Of Caffeine Consumption? None Information not available 04/18/2022 How Much Tobacco Do You Chew? None Information not available 02/02/2022 In The 14 Days Before Symptom Onset, Have You Had Close Contact With A Laboratory-confirm ed COVID-19 While That Case Was Ill? No [email or web address] Information n ot available 02/02/2022 In The 14 Days Before Symptom Onset, Have You Had Close Contact With A Person Who Is Under Investigation For COVID-19 While That Person Was Ill? No [email or web address] Information not available 02/02/2022 Have You Been To An Area Known To Be High Risk For COVID-19? No Information not available 02/02/2022 Are You Deaf Or Do You Have Serious Difficulty Hearing? No [email or web address] Information not available 02/02/2022 What Type Of Diet Are You Following? REGULAR [email or web address] Information n ot available 02/02/2022 What Is The Highest Grade Or Level Of School You Have Completed Or The Highest Degree You Have Received? [id number] Information not available 02/02/2022 Are There Any Guns Present In Your Home? Yes [email or web address] Information not available 02/02/2022 Have You Ever Been Counseled For Unhealthy Alcohol Use? No [email or web address] Information not available 07/26/2022 Do You Use Protection During Sex? No [email or web address] Information not available 02/02/2022 Do You Use Your Seat Belt Or Car Seat Routinely? Yes Information not available 02/02/2022 Do You Have Smoke And Carbon Monoxide Detectors In Your Home? Yes [email or web address] Information not available 02/02/2022 How Much Tobacco Do You Smoke? No [email or web address] Information not available 02/02/2022 Do You Use Sunscreen Routinely? Yes [email or web address] Information not available 02/02/2022 Has Tobacco Cessation Counseling Been Provided? No [email or web address] Information not available 04/18/2022 Have You Used IV Drugs? No [email or web address] Information not available 02/02/2022 Do You Have Difficulty Walking Or Climbing Stairs? No [email or web address] Information not available 04/18/2022 Sex: Unknown Functional Status Question Answer Note LastModified by Organizat ion Details LastModified Time Do you use any illicit or recreational drugs? No [email or web address] Information not available 02/02/2022 Do you or have you ever used any other forms of tobacco or nicotine? No [email or web address] Information not available 04/18/2022 What is your level of alcohol consumption? None [email or web address] Information not available 04/03/2024 Are you able to walk? YESWOREST [email or web address] Information not available 02/02/2022 Are you able to care for yourself? Yes Information n ot available 04/18/2022 What is your occupation? [employer] [email or web address] Information not available 02/02/2022 Do you have difficulty dressing or bathing? No Information not available 04/18/2022 What is your exercise level? Occasional [email or web address] Information not available 02/02/2022 Mental Status Question Answer Note LastModified by Organization D etails LastModified Time Do you feel stressed (tense, restless, nervous, or anxious, or unable to sleep at night)? [id number] [email or web address] Information not available 02/02/2022 Family History Relationship Description Onset Age of this Age Resolved Age Notes LastModified by Organization Details LastModified Time Maternal Grandmother Malignant tumor of breast [email or web address] Not available 02/02 09:47:36 Maternal Grandmother Osteoporosis [email or web address] Not availabl e 02/02/2022 09:47:36 Mother Anemia Not available 02/02/2022 09:47:36 Maternal Grandfather Diabetes mellitus [email or web address] Not available 02/02 09:47:36 Brother Substance abuse Not available 02/02 09:47:36 Medical History Condition Response Allergies (Food, seasonal, environmental ) Y Other N Breast Cancer N Drug/Latex Allergies/Reactions N Blood Transfusion N Dermatologic Disorders Y Lung Disease N Defects or Inherited Disease N Breast Problem N Gestational Diabetes N Hematologic disorders N Anesthesia Complications N History of STI N Deep Vein Thrombosis N Polycystic ovary syndrome N Anxiety Disorder N Autoimmune disease N Arthritis N Infertility N Polyps N Acid Reflux (GERD) N History of abnormal pap N Cancer N Stroke N Varicosities N Neurologic/Epilepsy N Endometriosis N High Cholesterol N Headaches N Fibromyalgia N Kidney Disease N Heart Problems N Kidney or Bladder Problems N Thyroid Problems N GI Problems N Eating Disorder N Anemia N Art (IVF or FET) N Psychiatric Illness N Ovarian Cancer N Diabetes N Pulmonary (TB, Asthma) N Hepatitis/Liver Disease N No Past Medical History Y Eczema N Urinary Tract Infection N Abuse/Domestic Violence N Asthma Y Trauma/Violence N Depression/ depression N Heart Disease N Pre-Eclampsia N Hypertension N Osteoporosis N Thrombophilias N Gynecological History Statement/Question Response Abnormal Pap N Date of LMP 01/05/2024 On BCP's at Conception? N Was last menstrual period normal Y STIs/STDs N HPV Vaccine Y Duration of Flow (days) 6 Current Control Method Age at First Child 31 Date of Last Colonoscopy Frequency of Cycle (Q days) 32 Sexually Active? Y Date of DEXA bone scan Age of first menstrual cycle 16 Date of Last Pap Smear 02/02/2022 Sexual Problems? N Desired Control Method None LMP Definite N Obstetrics History GPAL:G 3 P 2 0 0 2 Type Value Full Term 2 Living 2 Total 3 Past Encounters Encounter ID Performer Location Encounter Start Date Encounter Closed Date Diagnosis/Indication Diagnosis SNOMED-CT Code Diagnosis ICD10 Code Diagnosis Note [id number] Reji Real MD [place] [address],[place] [address] 02/02/2022 08:57:03 02/02/2022 09:58:43 [id number] Aramis Ureña [facility] [address] [place] [address] 02/02/2022 08:57:18 02/02/2022 11:18:31 test positive 981474914 Z32.01 Gynecologi c examination 68247573 Z01.419 Amenorrhea 84470818 N91. 2 [id number] Casi Austin MD [place] [address] [place] [address] 02/21/2022 14:45:09 02/21/2022 16:05:37 screening 524580568 Z36.82 [id number] Casi Austin MD [place] [address] [place] [address] 02/21/2022 14:45:58 02/21/2022 16:33:25 Routine care 129542808 Z34.91 [id number] Casi Austin MD [place] [address] [place] [address] 03/21/2022 15:02:53 03/21/2022 15:29:21 Routine care 160351700 Z34.91 [id number] Reji Real MD [place] [address],[place] [address] 04/18/2022 09:41:27 04/18/2022 11:05:33 screening for malformation 470811187 Z36.3 [id number] Aramis Ureña [facility] [address],[place] [address] 04/18/2022 09:43:16 04/18/2022 12:41:10 Routine care 758471996 Z34.92 [id number] [facility] [address],[place] [address] 05/18/2022 09:32:32 05/18/2022 10:36:19 Routine care 193355481 Z34.92 [id number] [facility] [address],[place] [address] 06/15/2022 09:14:45 06/15/2022 10:41:27 Routine care 687719033 Z34.92 [id number] [facility] [address],[place] [address] 06/27/2022 09:41:49 06/27/2022 10:14:14 Routine care 069802805 Z34.92 Muscle pain 22216357 M79 .10 [id number] Reji Real MD [place] [address],[place] [address] 07/13/2022 09:50:21 07/13/2022 13:36:29 Uterine size for dates discrepancy 846374309 O26.849 Z3A.32 [id number] [facility] [address] [address] 07/13/2022 09:54:04 07/13/2022 11:51:21 Routine care 851014030 Z34.92 [id number] Armida Beth [facility] [address],[place] [address] 07/26/2022 09:21:38 07/26/2022 10:29:19 Routine care 699061293 Z34.93 [id number] Aramis Ureña [facility] [address],[place] [address] 08/03/2022 14:28:42 08/03/2022 14:49:41 Routine care 393647602 Z34.92 [id number] Aramis Ureña [facility] [address],[place] [address] 08/10/2022 09:55:55 08/10/2022 10:17:34 Routine care 329451009 Z34.92 [id number] Aramis Ureña [facility] [address],[place] [address] 08/17/2022 09:33:04 08/17/2022 10:11:47 Routine care 779762380 Z34.92 [id number] Aramis Ureña [facility] [address],[place] [address] 08/24/2022 09:32:04 08/24/2022 10:18:23 Routine care 961015288 Z34.92 [id number] Aramis Ureña [facility] [address],[place] [address] 09/26/2022 12:11:19 09/26/2022 14:30:06 care 941322745 Z39.2 cont pnv, may try for another later this yearplan PT for back pain, affecting the ability to do ADL'sbreas tfeeding, consult today with Tayla Villasenor to keep off work until physically able to do so will reevaluate after PT consult [id number] REY KNIGHT MD [place] [address],[place] [address] 03/18/2024 12:13:07 03/18/2024 13:46:48 [id number] REY KNIGHT MD [place] [address],[place] [address] 03/18/2024 12:15:26 03/18/2024 15:13:56 Nausea and vomiting 17472666 R11.2 Advanced m aternal age 429735881 O09.521 - recommend NIPT due to AMA test positive 003997864 Z32.01 1. Exam today within normal limits.2. Ultrasound today confirms GA and viability. EDC . GC/Clamydi a testing done: will f/u as indicated. 4. ACOG guidelines and plan of care for reviewed with patient. All questions answered.5 . Return to office at 12 weeks for new OB visit6. Will need new OB labs at next visit.7. Genetic screening: desires. [id number] Reji Real MD [place] [address],[place] [address] 03/23/2024 11:18:41 03/23/2024 12:09:27 Threatened miscarriage 88704927 O20.0 O36.8910 Z3A.11 [id number] Reji Real MD [place] [address],[place] [address] 04/02/2024 10:47:39 04/02/2024 11:25:43 screening 393369020 Z36.82 Z3A.12 [id number] [facility] [address],[place] [address] 04/03/2024 11:51:50 04/03/2024 13:32:02 Gestation period, 12 weeks 69295797 Z3A.12 Routine an tenatal care 538759875 Z34.92 [id number] Reji Real MD [place] [address],[place] [address] 04/13/2024 11:51:48 04/13/2024 12:33:12 Threatened miscarriage 09748734 O20.0 O36.8910 Z3A.11 Z3A.14 [id number] [facility] [address],[place] [address] 05/06/2024 09:03:23 05/06/2024 10:20:24 Gestation period, 17 weeks 14754144 Z3A.17 [id number] Aramis Ureña [facility] [address],[place] [address] 06/03/2024 09:15:14 06/03/2024 10:07:02 Gestation period, 21 weeks 45967814 Z3A.21 [id number] Aramis Ureña [facility] [address],[place] [address] 07/01/2024 09:14:15 07/01/2024 09:57:57 Gestation period, 25 weeks 77130783 Z3A.25 [id number] [facility] [address] [address] 07/29/2024 09:34:39 07/29/2024 10:22:15 Gestation period, 29 weeks 82725328 Z3A.29 [id number] [facility] [address],[place] [address] 08/11/2024 09:37:51 08/11/2024 11:27:07 Gestation period, 31 weeks 32144824 Z3A.31 [id number] Reji Real MD [place] [address],[place] [address] 08/26/2024 09:20:27 08/26/2024 10:12:13 Uterine size for dates discrepancy 441286707 O26.843 O40.3XX0 Z3A.33 [id number] [facility] [address] [address] 08/26/2024 09:20:40 08/26/2024 10:38:44 Gestation period, 33 weeks 24264583 Z3A.33 [id number] Reji Real MD [place] [address],[place] [address] 09/07/2024 16:16:37 09/07/2024 17:09:35 Polyhydramnios 75933866 O40.3XX0 Z3A.35 [id number] [facility] [address] [address] 09/08/2024 09:35:11 09/08/2024 09:56:37 Gestation period, 35 weeks 43404881 Z3A.35 [id number] Reji Real MD [place] [address],[place] [address] 09/16/2024 10:52:48 09/16/2024 11:37:22 Polyhydramnios 27142058 O40.3XX0 O32.2XX0 Z3A.36 [id number] [facility] [address] [address] 09/16/2024 10:53:07 09/16/2024 14:00:07 screening 267255040 Z36.85 Gestation period, 36 weeks 66251096 Z3A.36 [id number] Aramis Ureña [facility] [address],[place] [address] 09/23/2024 17:50:28 09/24/2024 08:28:14 Gestation period, 37 weeks 51821348 Z3A.37 Health Concerns Section Related Observation LastModified by Organization Detai ls LastModified Time None Recorded Concern Status LastModified by Organization Details LastModified Time None Recorded Advance Directives Directive N: Payers Encounter Date Sequence Insurance Name Policy Number Policy Judge Covered Member ID Judge Member ID Guarantor Name 09/07/2024 1 [employer] [facility] [employer] Angelique Peruvian [id number] OI Angelique Peruvian 09/08/2024 1 [employer] [facility] [employer] Angelique Peruvian [id number] OI Angelique Peruvian 09/16/2024 1 [employer] [facility] [employer] Angelique Peruvian [id number] OI Angelique Peruvian 09/16/2024 1 [employer] [facility] [employer] Angelique Peruvian [id number] OI Angelique Segovia 09/23/2024 1 [employer] [facility] [employer] Angelique Segovia [id number] OI Angelique Segovia OBGyn Episode Ob Episode Information Episode Created Date Number of Fetuses Patient Bloodtype Patient rh Status Prepregnancy Weight lbs Domestic Partner Domestic Partner Phone 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 02/03/20 22 1 CLOSED Fetus Data First Name Last Name Admitted to NICU Weight (g) Sex Living Outcome Pediatric Complications Fetus ID Race Codes Race Delivery Type 3316.66 4704 M Full Term [id number] Vaginal Delivery Thomas Calculation Initial Thomas Date Initial Exam Date Initial Exam Provider Initial Ultrasound Date Last Menstrual Period Date Ultra Sound Weeks Gestation 0 Eighteen To Twenty Week Thomas Update Ultra Sound Date Fundal Height At Umbil Quickening Date Ultra Sound Latest Weeks Gestation Final Thomas Confirmed By Final Thomas Confirmed Date Final Thomas Date Ultra Sound Latest Days Gestation 0 0 Menstrual History Last Menstrual Date Menses Monthly On Bcp Conception Prior Menses Frequency Hcg Plus Date Menarche Onset Age Delivery Information Delivery Date Delivery Type Labor Anesthesia Weeks Gestation Incision Type Labor Labor Length Hrs Delivered By Post Complications Tubal Sterilization Discharge Date Comments 8 39 Discharge Information Feeding Method Contraceptive Method Maternal HG B and HCT Levels Ob Episode Information Episode Created Date Number of Fetuses Patient Bloodtype Patient rh Status Prepregnancy Weight lbs Domestic Partner Domestic Partner Phone 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 02/22/20 22 1 O Positive 145 CLOSED Fetus Data First Name Last Name Admitted to NICU Weight (g) Sex Living Outcome Pediatric Complications Fetus ID Race Codes Race Delivery Type 4110.67 75 M true Full Term [id number] Vaginal Delivery Problems Problem Notes stress induced dermatitisNIP T NL Problem Name Start Date End Date Resolution Snomed Code Not e Mild asthma [id number] albutero l prn Thomas Calculation Initial Thomas Date Initial Exam Date Initial Exam Provider Initial Ultrasound Date Last Menstrual Period Date Ultra Sound Weeks Gestation 09/02/2022 02/21/2022 02/02/2022 11/26/2021 10 Eighteen To Twenty Week Thomas Update Ultra Sound Date Fundal Height At Umbil Quickening Date Ultra Sound Latest Weeks Gestation Final Thomas Confirmed By Final Thomas Confirmed Date Final Thomas Date Ultra Sound Latest Days Gestation 0 02/21/2022 09/03/19 23 0 Pre- Flowsheet Flowsheet Date 02/21/2022 Lopez Score Blood Edema Fundus Height Fundus Units Glucose Ketones Leukocytes Nitrite Labor Signs Protein Cervic Dilation Cervic Effacement Cervic Station neg none none trace Type Weight in lbs Pre/Post Dialysis Refused Weight 143.511953598868 BP Diastolic BP Location Tested BP Systolic BP Type 80 119 Fetus Heart Rate Present Fetus Movement A No Comments Angelique is a 36yo at 12.3 for care. History of term , uncomplicated. Has mild asthma, seasonal allergies, and a stress induced dermatitis. Will do flu and COVID booster. NT wnl today. Will do labs and NIPT today. [place] gender. Flowsheet Date 03/21/2022 Lopez Score Blood Edema Fundus Height Fundus Units Glucose Ketones Leukocytes Nitrite Labor Signs Protein Cervic Dilation Cervic Effacement Cervic Station neg none none trace Type Weight in lbs Pre/Post Dialysis Refused Weight 149.357378722796 BP Diastolic BP Location Tested BP Systolic BP Type 69 126 Fetus Heart Rate Present A 150 Fetus Movement A Yes Comments Doing well. Doing flu shot a nd COVID booster this week. Anatomy US next visit. Flowsheet Date 04/18/2022 Lopez Score Blood Edema Fundus Height Fundus Units Glucose Ketones Leukocytes Nitrite Labor Signs Protein Cervic Dilation Cervic Effacement Cervic Station Type Weight in lbs Pre/Post Dialysis Refused BP Diastolic BP Location Tested BP Systolic BP Type Fetus Heart Rate Present Fetus Movement Comments Flowsheet Date 04/18/2022 Lopez Score Blood Edema Fundus Height Fundus Units Glucose Ketones Leukocytes Nitrite Labor Signs Protein Cervic Dilation Cervic Effacement Cervic Station neg none none trace Type Weight in lbs Pre/Post Dialysis Refused Weight 152.463014943891 BP Diastolic BP Location Tested BP Systolic BP Type 65 100 Fetus Heart Rate Present Fetus Movement A Yes Comments patient states that having s ome pain BH contractions, nausea and vomiting. anatomy complete, occ bh, precautions reviewed, and will f/u in 4 weeks Flowsheet Date 05/18/2022 Lopez Score Blood Edema Fundus Height Fundus Units Glucose Ketones Leukocytes Nitrite Labor Signs Protein Cervic Dilation Cervic Effacement Cervic Station neg none 25 none trace Type Weight in lbs Pre/Post Dialysis Refused Weight 161.558437869144 BP Diastolic BP Location Tested BP Systolic BP Type 70 108 Fetus Heart Rate Present A 136 Present Fetus Movement A Yes Comments patient states that feet and hand are falling asleep frequency and nausea. Discussed ice, braces, GCT at next visit, will do fresh test or bring juice, precautions reviewed, feeling great, work is stress free Flowsheet Date 06/15/2022 Lopez Score Blood Edema Fundus Height Fundus Units Glucose Ketones Leukocytes Nitrite Labor Signs Protein Cervic Dilation Cervic Effacement Cervic Station neg none 30 none trace Type Weight in lbs Pre/Post Dialysis Refused Weight 169.659664668233 BP Diastolic BP Location Tested BP Systolic BP Type 69 105 Fetus Heart Rate Present A 140 Present Fetus Movement A Yes Comments did fresh test GCT today, do ing well, only traveling a few more times for work, note given to fly until june. precautions reviewed, ok for tdap f/u 2 weeks Flowsheet Date 06/27/2022 Lopez Score Blood Edema Fundus Height Fundus Units Glucose Ketones Leukocytes Nitrite Labor Signs Protein Cervic Dilation Cervic Effacement Cervic Station neg none 33 none trace Type Weight in lbs Pre/Post Dialysis Refused Weight 171.062003461786 BP Diastolic BP Location Tested BP Systolic BP Type 78 115 Fetus Heart Rate Present A 155 Present Fetus Movement A Yes Comments patient states that having s ome pain. left pain under rib very specific , pain with deep breath or with movement, no respiratory sxs, no pain any other space, no pain in between ribs, lungs clear bilaterally, plan flexeril, precautions reviewed Flowsheet Date 07/13/2022 Lopez Score Blood Edema Fundus Height Fundus Units Glucose Ketones Leukocytes Nitrite Labor Signs Protein Cervic Dilation Cervic Effacement Cervic Station Type Weight in lbs Pre/Post Dialysis Refused BP Diastolic BP Location Tested BP Systolic BP Type Fetus Heart Rate Present Fetus Movement Comments Flowsheet Date 07/13/2022 Lopez Score Blood Edema Fundus Height Fundus Units Glucose Ketones Leukocytes Nitrite Labor Signs Protein Cervic Dilation Cervic Effacement Cervic Station neg none none trace Type Weight in lbs Pre/Post Dialysis Refused Weight 181.082818906650 BP Diastolic BP Location Tested BP Systolic BP Type 72 118 Fetus Heart Rate Present Fetus Movement A Yes Comments efw 94%, doing well, 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 No contractions. Encouraged tdap and preadmit. Flowsheet Date 08/03/2022 Lopez Score Blood Edema Fundus Height Fundus Units Glucose Ketones Leukocytes Nitrite Labor Signs Protein Cervic Dilation Cervic Effacement Cervic Station neg trace 35 none trace Type Weight in lbs Pre/Post Dialysis Refused Weight 185.329502908095 BP Diastolic BP Location Tested BP Systolic BP Type 68 120 Fetus Heart Rate Present A 150 Fetus Movement A Yes Comments patient states that having s ome contractions and swelling. reviewed precautions, gbs done, education done, working from home now f/u one week Flowsheet Date 08/10/2022 Lopez Score Blood Edema Fundus Height Fundus Units Glucose Ketones Leukocytes Nitrite Labor Signs Protein Cervic Dilation Cervic Effacement Cervic Station neg none 37 none trace Type Weight in lbs Pre/Post Dialysis Refused Weight 189.766605258928 BP Diastolic BP Location Tested BP Systolic BP Type 88 130 Fetus Heart Rate Present A 149 Present Fetus Movement A Yes Comments doing well, gbs negative, la bor and precautions, f/u one week Flowsheet Date 08/17/2022 Lopez Score Blood Edema Fundus Height Fundus Units Glucose Ketones Leukocytes Nitrite Labor Signs Protein Cervic Dilation Cervic Effacement Cervic Station neg none 38 none trace Type Weight in lbs Pre/Post Dialysis Refused Weight 190.310457160453 BP Diastolic BP Location Tested BP Systolic BP Type 88 138 Fetus Heart Rate Present A 144 Present Fetus Movement A Yes Comments patient is having contractio ns and swelling. swelling resolves, labor precautions, declines cervical exam, f/u one week Flowsheet Date 08/24/2022 Lopez Score Blood Edema Fundus Height Fundus Units Glucose Ketones Leukocytes Nitrite Labor Signs Protein Cervic Dilation Cervic Effacement Cervic Station neg none none trace Type Weight in lbs Pre/Post Dialysis Refused Weight 192.813105972859 BP Diastolic BP Location Tested BP Systolic BP Type 88 138 Fetus Heart Rate Present A 154 Present Fetus Movement A Yes Comments patient states that having s ome contractions. elevated bp for her, denies chan, visual changes, epigastric pain, precautions reviewed IOL next week Menstrual History Last Menstrual Date Menses Monthly On Bcp Conception Prior Menses Frequency Hcg Plus Date Menarche Onset Age 0811/26/2021 Genetic Screening And Infection History Question Response Note Mental Retardation/Autism false Patient's Age Will Be 35 Years Or Older At Estim ated Date of Delivery false Thalassemia (Tanzanian, Croatian, Mediterranean, Or Background): MCV < 80 false Neural Tube Defect (Meningomyelocele, Spina Bifi da, Or Anencephaly) false Congenital Heart Defect false Down Syndrome false Agusto-Sachs (eg, Episcopal, Cajun, Peruvian-Juniata) f alse Krzysztof Disease false Sickle Cell Disease Or Trait () false Hemophilia Or Other Blood Disorders false Muscular Dystrophy false Cystic Fibrosis false Paige's Chorea false Intellectual Disability/Autism false If Yes, Was Person Tested For Fragile X? false Other Inherited Genetic Or Chromosomal Disorder false Maternal Metabolic Disorder (eg, Type 1 Diabetes , PKU) false Patient Or Baby's Father Had A Child With Defects Not Listed Above false Recurrent Loss, Or A Stillbirth false Medications (including Suppl ements, Vitamins, Herbs, OTC Drugs), Illicit/Recreational Drugs, Alcohol false If Yes, Agent(s) And Strength/Dosage false Any Other Genetic History false Live With Someone With TB Or Exposed To TB false Patient Or Partner Has History Of Genital Herpes false Rash Or Viral Illness Since Last Menstrual Perio d false History Of STD, Gonorrhea, Chlamydia, HPV, Syphi lis false Other Infection History false History of HIV false History of Hepatitis false Prior GBS-infected child false Hemoglobinopathy Or Carrier false Other Structural Defect false Recent Travel History Outside of Country false Delivery Information Delivery Date Delivery Type Labor Anesthesia Weeks Gestation Incision Type Labor Labor Length Hrs Delivered By Post Complications Tubal Sterilization Discharge Date Comments 3 Induce d [facility]-Ep id[facility] 39.3 false Aramis Ureña CNM stress induced dermatiti s Discharge Information Feeding Method Contraceptive Method Maternal HG B and HCT Levels Ob Episode Information Episode Created Date Number of Fetuses Patient Bloodtype Patient rh Status Prepregnancy Weight lbs Domestic Partner Domestic Partner Phone 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 04/03/20 24 1 O Positive 143 [employer] [place] OPEN Fetus Data First Name Last Name Admitted to NICU Weight (g) Sex Living Outcome Pediatric Complications Fetus ID Race Codes Race Delivery Type [id number] Problems Problem Notes Problem Name Start Date End Date Resolution Snomed Code Not e History of back pain [id number] after last (6 mo PT to heal) Mild asthma [id number] albutero l prnzyrtec Past history of gestational hypertension [id number] 39 weeks Subchorionic hematoma [id number] 4 mean 46 mm [facility] referral faxed 04/07 scheduled [facility] 04/30/24 130 Level II & Consult 05/27 Level II US & Consult [facility] office- cleared from [facility] Thomas Calculation Initial Thomas Date Initial Exam Date Initial Exam Provider Initial Ultrasound Date Last Menstrual Period Date Ultra Sound Weeks Gestation 10/11/2024 03/18/2024 03/18/2024 01/05/2024 10 Eighteen To Twenty Week Thomas Update Ultra Sound Date Fundal Height At Umbil Quickening Date Ultra Sound Latest Weeks Gestation Final Thomas Confirmed By Final Thomas Confirmed Date Final Thomas Date Ultra Sound Latest Days Gestation 0 0 Pre-renetta Flowsheet Flowsheet Date 04/03/2024 Lopez Score Blood Edema Fundus Height Fundus Units Glucose Ketones Leukocytes Nitrite Labor Signs Protein Cervic Dilation Cervic Effacement Cervic Station trace none none trace Type Weight in lbs Pre/Post Dialysis Refused Weight 143.071219495712 BP Diastolic BP Location Tested BP Systolic BP Type 69 102 Fetus Heart Rate Present Fetus Movement A No Comments Patient is having some pain, cramping, nausea, vomiting, and bleeding last week. reviewed US from 04/02. reviewed lifting precautions and pelvic rest ok to walk, daily activities, call if desires us or doppler, unsure about bASA, had a long nose bleed, discussed risks and benefits f/u 4 weeks will plan level 2 US and [facility] consult, begin care Flowsheet Date 04/13/2024 Lopez Score Blood Edema Fundus Height Fundus Units Glucose Ketones Leukocytes Nitrite Labor Signs Protein Cervic Dilation Cervic Effacement Cervic Station Type Weight in lbs Pre/Post Dialysis Refused BP Diastolic BP Location Tested BP Systolic BP Type Fetus Heart Rate Present Fetus Movement Comments Flowsheet Date 05/06/2024 Lopez Score Blood Edema Fundus Height Fundus Units Glucose Ketones Leukocytes Nitrite Labor Signs Protein Cervic Dilation Cervic Effacement Cervic Station Type Weight in lbs Pre/Post Dialysis Refused 142.464918515332 BP Diastolic BP Location Tested BP Systolic BP Type 69 102 Fetus Heart Rate Present A 145 Present Fetus Movement A Yes Comments Patient has been having blee ding but not currently, nausea and vomiting. precautions and education saw mfm, has anatomy scheduled. +FM, f/u after next us Flowsheet Date 06/03/2024 Lopez Score Blood Edema Fundus Height Fundus Units Glucose Ketones Leukocytes Nitrite Labor Signs Protein Cervic Dilation Cervic Effacement Cervic Station neg none Type Weight in lbs Pre/Post Dialysis Refused 151.075783598685 BP Diastolic BP Location Tested BP Systolic BP Type 65 102 Fetus Heart Rate Present Fetus Movement A Yes Comments Patient is having back pain and nausea and vomiting. saw mfm and bleed is not growing in size, +FM, has f/u in a couple weeks, wondering about restrictions. will call [facility], plan pelvic floor pt Flowsheet Date 07/01/2024 Lopez Score Blood Edema Fundus Height Fundus Units Glucose Ketones Leukocytes Nitrite Labor Signs Protein Cervic Dilation Cervic Effacement Cervic Station neg none Type Weight in lbs Pre/Post Dialysis Refused 157.814261898769 BP Diastolic BP Location Tested BP Systolic BP Type 65 97 Fetus Heart Rate Present Fetus Movement A Yes Comments Patient is having heartburn, nausea and vomiting. reviewed education and precautions, order for 28 week labs will take to [facility] [facility]. +FM, sees mfm at 28 weeks f/u here in 4 weeks Flowsheet Date 07/29/2024 Lopez Score Blood Edema Fundus Height Fundus Units Glucose Ketones Leukocytes Nitrite Labor Signs Protein Cervic Dilation Cervic Effacement Cervic Station neg none Type Weight in lbs Pre/Post Dialysis Refused Weight 170.576177659954 BP Diastolic BP Location Tested BP Systolic BP Type 72 110 Fetus Heart Rate Present Fetus Movement A Yes Comments ok for tdap +FM, cleared fro m mfm, will do growth us here precautions and education f/u 2 weeks Flowsheet Date 08/11/2024 Lopez Score Blood Edema Fundus Height Fundus Units Glucose Ketones Leukocytes Nitrite Labor Signs Protein Cervic Dilation Cervic Effacement Cervic Station neg none Type Weight in lbs Pre/Post Dialysis Refused 175.761807374688 BP Diastolic BP Location Tested BP Systolic BP Type 64 108 Fetus Heart Rate Present Fetus Movement A Yes Comments Patient states that is havin g heartburn and is not sleeping well. pepcid helping ok for unisom to sleep +FM, precautions and education, f/u 2 weeks Flowsheet Date 08/26/2024 Lopez Score Blood Edema Fundus Height Fundus Units Glucose Ketones Leukocytes Nitrite Labor Signs Protein Cervic Dilation Cervic Effacement Cervic Station Type Weight in lbs Pre/Post Dialysis Refused BP Diastolic BP Location Tested BP Systolic BP Type Fetus Heart Rate Present Fetus Movement Comments Flowsheet Date 08/26/2024 Lopez Score Blood Edema Fundus Height Fundus Units Glucose Ketones Leukocytes Nitrite Labor Signs Protein Cervic Dilation Cervic Effacement Cervic Station neg none Type Weight in lbs Pre/Post Dialysis Refused Weight 179.981613956273 BP Diastolic BP Location Tested BP Systolic BP Type 69 105 Fetus Heart Rate Present Fetus Movement A Yes Comments Patient is having contractio ns, nausea and heartburn. reviewed US with pt will have dr real review, efw 76%, ac 95%, farhana 30 bpp 11/27, taiwo not visible +FM, reviewed precautions and education Flowsheet Date 09/07/2024 Lopez Score Blood Edema Fundus Height Fundus Units Glucose Ketones Leukocytes Nitrite Labor Signs Protein Cervic Dilation Cervic Effacement Cervic Station Type Weight in lbs Pre/Post Dialysis Refused BP Diastolic BP Location Tested BP Systolic BP Type Fetus Heart Rate Present Fetus Movement Comments Flowsheet Date 09/08/2024 Lopez Score Blood Edema Fundus Height Fundus Units Glucose Ketones Leukocytes Nitrite Labor Signs Protein Cervic Dilation Cervic Effacement Cervic Station neg none Type Weight in lbs Pre/Post Dialysis Refused Weight 182.695983341757 BP Diastolic BP Location Tested BP Systolic BP Type 67 102 Fetus Heart Rate Present A 132 Present Fetus Movement A Yes Comments Patient states that is havin g some contractions and nausea. transverse, cont spinning baby , farhana 26 +FM, precautions and education f/u 1 week Flowsheet Date 09/16/2024 Lopez Score Blood Edema Fundus Height Fundus Units Glucose Ketones Leukocytes Nitrite Labor Signs Protein Cervic Dilation Cervic Effacement Cervic Station Type Weight in lbs Pre/Post Dialysis Refused BP Diastolic BP Location Tested BP Systolic BP Type Fetus Heart Rate Present Fetus Movement Comments Flowsheet Date 09/16/2024 Lopez Score Blood Edema Fundus Height Fundus Units Glucose Ketones Leukocytes Nitrite Labor Signs Protein Cervic Dilation Cervic Effacement Cervic Station neg none Type Weight in lbs Pre/Post Dialysis Refused Weight 189.812537138062 BP Diastolic BP Location Tested BP Systolic BP Type 72 109 Fetus Heart Rate Present Fetus Movement A Yes Comments Patient states that is havin g BH contractions, nausea and vomiting. polyhydramnios resolved, doing well, gbs collected f/u one week +FM Flowsheet Date 09/23/2024 Lopez Score Blood Edema Fundus Height Fundus Units Glucose Ketones Leukocytes Nitrite Labor Signs Protein Cervic Dilation Cervic Effacement Cervic Station neg none 37 cm Type Weight in lbs Pre/Post Dialysis Refused 189.749677673183 BP Diastolic BP Location Tested BP Systolic BP Type 61 101 Fetus Heart Rate Present A 145 Present Fetus Movement A Yes Comments Patient is having heartburn, BH contractions, nausea and vomiting. rx for protonix, labor precautions, +FM, f/u one week Menstrual History Last Menstrual Date Menses Monthly On Bcp Conception Prior Menses Frequency Hcg Plus Date Menarche Onset Age 0901/05/2024 Delivery Information Delivery Date Delivery Type Labor Anesthesia Weeks Gestation Incision Type Labor Labor Length Hrs Delivered By Post Complications Tubal Sterilization Discharge Date Comments Discharge Information Feeding Method Contraceptive Method Maternal HG B and HCT Levels
--- OUTSIDE RECORDS SUMMARY | 2024-09-29 23:06 | XMS_ITS | Clinical Summary ---
Author Organization [facility] Address [address] [place] [address] Care Team Providers Care Shackler Name Role Phone Anne-Marie BOWSER MD, Fred R Primary Care Provider + Jordon Galindo MD Unavailable Source Comments [facility],non-owned Affiliates and Associated Physician Practices is amultiple site organization consisting of ambulatory clinics and hospital sitesin [place], [place], [place] and [place]. This disclosure is being madepursuant to the Care Everywhere program and may not contain all information available regarding this patient. Last updated 18.[facility] Allergies No known active allergies Medications * Be aware that medications may not be up to date on this document. Alwaysverify current medications with the patient. Vit-Fe Fumarate-FA ( vitamin) 27-0.8 MG tablet Take 1 (one) tablet by mouth once daily Active Cetirizine HCl (ZYRTEC ALLERGY PO) Active ondansetron, disintegrating, (Zofran ODT) 8 MG tablet Take 1 (one) tablet by mouth every 6 hours as needed for Nausea/Vomitin g Allow tablet to dissolve on the tongue Active albuterol HFA (ProAir HFA) 108 (90 Base) MCG/ACT inhalerIndication s:Exercise induced bronchospasm (HCC) Inhale 2 (two) puffs by mouth every 4 hours as needed for Wheezing (May use 2 puffs prior to exercise) 8.5 g 5 Active ferrous sulfate 325 (65 FE) MG tabletIndications :Iron Deficiency Take 1 (one) tablet by mouth once daily Reasons: Iron Deficiency Active Active Problems Problem Noted Date Diagnosed Date Subchorionic hematoma 04/30/2024 AMA (advanced maternal age) multigravida 35+ 12/2024 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 11/01/2022 Estimated Date of Delivery Comme nts Yes 10/11/2024 Based on last me nstrual period of 01/05/2024 Resolved Problems Problem Noted Date Diagnosed Date Resolved Date Rash and other nonspecific skin eruption 03/04/2021 11/01/2022 Encounters Date Type Department Care Team Description 07/21/2024 8:46 AM CDT - 07/21/2024 11:59 PM CDT Hospital Encounter [facility] [address] [place] [address] Aries Gomez MD Discharge Disposition: Home or Self Care 07/21/2024 Travel from Last 3 Months Immunizations Immunization Administration Dates Next Due Covid Moderna primary monovalent 12+ yr 0.5mL ,12/08/2019 INFLUENZA VACCINE, QUADR. (F LUZONE; FLULAVAL; FLUARIX; AFLURIA QUADRIVALENT; 6MO+), 0.5 ML (IIV4) 04/30/2024 TDAP (7yrs+) 11/03/2014 Family History Medical History Relation Name Comments High Cholesterol Father Status: Ali ve Hypertension Father Cancer - Breast Maternal Aunt Other Mother Relation Name Status Comments Father Alive Maternal Aunt Mother Alive Social History Tobacco Use Types Packs/Day Years Used Date Smoking Tobacco: Never Smokeless Tobacco: Never Tobacco Cessation:Counseling Given: Not Answered Alcohol Use Standard Drinks/Week Comments Not Currently 0 (1 standard drink = 0.6 oz pur e alcohol) PHQ-2 Answer Date Recorded PHQ2 TOTAL SCORE 0 11/01/2022 Education Answer Date Recorded What is the highest level of school you have completed or the highest degree you have received? 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 Not on file Not on file Not on file Last Filed Vital Signs Vital Sign Reading Time Taken Comments Blood Pressure 102/60 05/27/2024 10:37 AM [employer] Pulse 88 04/30/2024 3:16 PM [employer] Temperature 36.2 C (97.1 F) 04/30/2024 3:16 PM [employer] Respiratory Rate 16 04/30/2024 3:16 PM [employer] Oxygen Saturation 99% 04/30/2024 3:16 PM [employer] Inhaled Oxygen Concentration - - Weight 67.7 kg (149 lb 3.2 oz) 05/27/2024 10:37 AM [employer] Height 172.7 cm (5' 8) 05/27/2024 10:37 AM [employer] Body Mass Index 22.69 05/27/2024 10:37 AM [employer] Plan of Treatment Health Maintenance Due Date Last Done Comments HIV SCREENING 10/19/2002 HEPATITIS C SCREENING 10/15/2005 HEPATITIS B VACCINE (1 of 3 - 19+ 3-dose series) 10/19/2006 PAP SMEAR 08/21/2023 08/20/2020 (Done Outside Per Patient) COVID-19 VACCINE ( season) 2023 03/23/2022, 03/06/2021, 01/04/2021, Additional history exists DEPRESSION SCREENING 04/22/2024 11/01/2022 OB-ONE HOUR GLUCOSE 07/05/2024 OB-TDAP CURRENT 07/12/20242022, 04/30/2017, 11/03/2014 OB-RHOGAM INJECTION 07/19/2024 OB-GROUP B STREP SCREEN 09/06/2024 08/03/2022 DTAP/TDAP/TD VACCINES (2 - Td or Tdap) 11/03/2024 11/03/2014 ZOSTER VACCINE (1 of 2) 10/19/2037 INFLUENZA VACCINE Completed 04/30/2024, 03/23/2022 HIB VACCINE Aged Out No longer eligi ble based on patient's age to complete this topic HPV VACCINE Aged Out No longer eligi ble based on patient's age to complete this topic MENINGOCOCCAL (Group B) VACCINE SHARED DECISION-MAKING Aged Out No longer eligible based on patient's age to complete this topic MENINGOCOCCAL GROUPS A/C/Y/W VACCINE Aged Out No longer eligible based on patient's age to complete this topic PNEUMOCOCCAL VACCINE Aged Out No long er eligible based on patient's age to complete this topic Respiratory Syncytial Virus (RSV) Vaccine Pt: or over 60 yrs (No Doses Required) Completed Procedures Procedure Name Priority Date/Time Associated Diagnosis Comments SONOGRAM - COMPLETE Routine 07/21/2024 8:40 AM CDT Subchorionic hematoma, antepartum, single or unspecified fetus (HCC) Antepartum multigravida of advanced maternal age (HCC) 28 weeks gestation of (HCC) Encounter for ultrasound to assess growth (HCC) from Last 3 Months Results * SONOGRAM - COMPLETE (07/21/2024 8:40 AM CDT) Linked Results Indication ======== Subchorionic Hemorrhage at Cervix on 05/27 scan Vaginal Bleeding from 11-16 weeks Growth AMA 38 History ====== OB History 3. Para 2 [id number] 1. live 2017. Gest. age 39 w + 0 d. Weight 3,572 g. Sex of child: male. Details: 2. live 2022. Gest. age 39 w + 0 d. Weight 4,111 g. Sex of child: male. Details: Lab Tests Test Date Result NIPT Low risk Maternal Assessment Physical Exam Height 173 cm, 5 ft 8 in. Initial weight 65 kg, 143 lb. Initial BMI 21.74 kg/m Method ====== Transabdominal ultrasound. View: Good view ========= Walsh . Number of fetuses: 1 Dating ====== Date Details Gest. age ILDA LMP 01/05/2024 28 w + 2 d 10/11/2024 U/S 07/21/2024 based upon AC, BPD, Femur, HC 29 w + 0 d 10/06/2024 Assigned dating based on the LMP, selected on 04/30/2024 28 w + 2 d 10/11/2024 General Evaluation Cardiac activity present. FHR 140 bpm. Presentation: breech Placenta: Placental site: anterior Amniotic fluid: Amount of AF: normal. MVP 6.8 cm. ADAMS 22.7 cm. Q1 6.7 cm, Q2 3.0 cm, Q3 6.8 cm, Q4 6.2 cm Biometry BPD 72.6 mm 29w 1d 66% Hadlock HC 264.9 mm 28w 6d 35% Hadlock AC 258.0 mm 30w 0d 88% Hadlock Femur 53.0 mm 28w 1d 31% Hadlock Humerus 46.1 mm 27w 1d 15% Chris HC / AC 1.03 -/- Hadlock Weight Calculation: EFW 1,354 g 72% Hadlock EFW (lb,oz) 3 lb 0 oz EFW by Hadlock ([id number]) appropriate Growth Overview = Exam date GA BPD (mm) HC (mm) AC (mm) FL (mm) HL (mm) EFW (g) 04/30/2024 16w 4d 33.3 36% 126.9 30% 113.8 71% 21.4 38% 21.5 55% 168 53% 05/27/2024 20w 3d 47.8 51% 172.9 18% 161.7 71% 34 51% 31.7 57% 382 68% 07/21/2024 28w 2d 72.6 66% 264.9 35% 258 88% 53 31% 46.1 15% 1354 72% Anatomy The following structures appear normal: Heart / Thorax 4-chamber view. Abdomen Stomach. Kidneys. Bladder. Impression ========= Single, live, intrauterine at 28w 2d The size is appropriate. The amniotic fluid volume is normal. Resolved cervical subchorionic hemorrhage No major malformations were seen within the limitations of ultrasound Follow-up ======== Follow up as clinically indicated Coding ====== Procedures 61964: US Preg Uterus Follow Up [facility] PACS Anatomical Region Laterality Modality Other 07/21/2024 8:40 AM CDT RUST Darrell Olivera MD [facility] ORDERABLES Edited Result - Final from Last 3 Months [facility] [place]: [address] [facility] [address] [place] [address] [employer] Care Teams Shackler Relationship Specialty Start Date End Date Koffi Xie III, MD [address] DIV [place] [address] PCP - General Internal Medicine 11/01/22 Jordon Galindo MD [address] [place] [address] Resident - PCP Internal Medicine 11/01/22
--- NOTE | 2024-09-29 23:13 | LDADM ---
This patient, Angelique Segovia, was admitted to Labor/Delivery/Recovery 106 on 09/29/24 at 22:36. Plans for labor, pain management and were discussed with patient. Patient/family oriented to hospital policies and general routines including ID bracelet, bed and alarms, visiting hours, pain management, procedures, bathroom and other care routines, personal items, smoking policy, room service/diet and guest tray routines, security routines, and visiting hours. Patient/Family are encouraged to report perceived risks to care and to ask questions if they do not understand what they are told or what they should do. See OBIX for further documentation.
[2024-09-29 23:20] LABS: Basophils Percent Auto 0.3 % (0.2-1.2); Eosinophils Absolute Auto 0.1 K/mm3 (0-0.3); Hematocrit 34.9 % (37.0-47.0); Hemoglobin 11.6 g/dL (12.0-15.0); Immature Granulocyte Absolute 0.17 K/mm3 (0.00-0.031); Immature Granulocyte Percent A 1.8 % (0-0.5); Lymphocytes Absolute Auto 2.07 K/mm3 (0.9-3.2); Lymphocytes Percent Auto 21.5 % (18.3-44.2); Mean Corpuscular HGB Conc 33.2 g/dl (32-36); Mean Corpuscular Hemoglobin 31.8 pg (26-34); Mean Corpuscular Volume 95.6 fl (80-100); Mean Platelet Volume 10.6 fl (7.4-10.4); Monocytes Absolute Auto 0.8 K/mm3 (0.1-0.6); Monocytes Percent Auto 8.1 % (2.6-8.5); Neutrophils Absolute Auto 6.5 K/mm3 (1.3-6.7); Neutrophils Percent Auto 67.3 % (45.5-73.1); Platelet Count Result 210 k/mm3 (150-375); Red Blood Count 3.65 M/mm3 (4.2-5.4); Red Cell Distribution Width 12.7 % (11.5-14.5); White Blood Count 9.6 K/mm3 (4.5-10.0)
[2024-09-30] VITALS (142 sets, daily range): BP systolic 96–125; BP diastolic 50–78; PULSE 25–143; RESP 16–20; TEMP 36.4–37.2; O2SAT 78–100
[2024-09-30] LABS: Rubella IgG Antibody 18.3 IU/ML; Syphilis IgG/IgM Antibody Non-Reactive (Nonreactive)
[2024-09-30 00:14] LABS: HIV 1/2 Ab P24 Ag Result Negative (Negative)
--- NOTE | 2024-09-30 01:46 | WPDANESEPP ---
Anes - Eval Pre Procedure Procedure: Labor Pain Management Date/Time: 09/30/24 01:46 Surgeon: Jarod Preop Diagnosis: pain during labor Pre Op Diagnosis: Leaking Patient Data Age: 38 Gender: F Height: 1.73 m Weight: 85 kg Last Vital Signs Temp 97.6 F 09/30/24 00:04 Pulse 116 H 09/30/24 01:00 BP 103/59 L 09/30/24 01:00 Pulse Ox 99 09/30/24 01:42 O2 Del Method Room Air 09/29/24 23:17 Allergies Allergy/AdvReac Type Severity Reaction Status Date / Time No Known Allergies Allergy Verified 09/29/24 23:27 Home Medications ?Medication ?Instructions ?Recorded ?Confirmed ?Type albuterol sulfate 90 mcg/actuation 2 puff inhalation QID PRN Wheezing 08/17/22 09/29/24 History aerosol inhaler cetirizine 10 mg tablet (Zyrtec) 10 mg PO DAILY 08/17/22 09/29/24 History prenat.vits,sneha,[id number] 1 tablet PO HS 08/17/22 09/29/24 History ibuprofen 600 mg tablet 600 mg PO Q6H PRN Cramping #30 tabs 08/31/22 09/29/24 Rx Laboratory Tests 09/29/24 23:14 WBC 9.6 K/mm3 (4.5-10.0) RBC 3.65 L M/mm3 (4.2-5.4) Hgb 11.6 L g/dL (12.0-15.0) Hct 34.9 L % (37.0-47.0) MCV 95.6 fl (80-100) MCH 31.8 pg (26-34) MCHC 33.2 g/dl (32-36) RDW 12.7 % (11.5-14.5) Plt Count 210 k/mm3 (150-375) MPV 10.6 H fl (7.4-10.4) Immature Gran % (Auto) 1.8 H % (0-0.5) Neut % (Auto) 67.3 % (45.5-73.1) Lymph % (Auto) 21.5 % (18.3-44.2) [place] % (Auto) 8.1 % (2.6-8.5) Eos % (Auto) 1.0 % (0-4.4) Baso % (Auto) 0.3 % (0.2-1.2) Lymph # (Auto) 2.07 K/mm3 (0.9-3.2) [place] # (Auto) 0.8 H K/mm3 (0.1-0.6) Eos # (Auto) 0.1 K/mm3 (0-0.3) Baso # (Auto) 0.0 K/mm3 (0.0-0.1) Abs Immat Gran (auto) 0.17 H K/mm3 (0.00-0.031) Absolute Neuts (auto) 6.5 K/mm3 (1.3-6.7) Absolute Nucleated RBC 0.000 K/mm3 (0.0-0.012) Nucleated RBC % 0.0 % (0.0-0.2) Syphilis IgG/IgM Ab Non-reactive (Nonreactive) HIV 1&2 Ab/P24 Ag 4thGn Negative (Negative) Rubella IgG Antibody 18.3 IU/ML (10 - ) Blood Type O Positive Antibody Screen Negative Patient hx anesthesia problems: none Family hx anesthesia problems: none Results Review: All pre-operative results and documents have been reviewed as part of the pre-operative evaluation. [facility] Past Medical History Medical History Suppression of menses Family History Family History Grandparent Hypertension Diabetes mellitus Social History Social History Smoking status: Never smoker Alcohol intake: never Substance use: never Substance use type: does not use Do You Feel Safe in your Home?: Yes Lack of Transportation: No Lack of Food: Never True Current Housing: I Have Housing Concerned About Future Housing: No Difficulty Paying Gas/Electric Bills: No Difficulty Paying for Meds: No Currently Unemployed: No Education: Master's Degree or Higher Difficulty w/ Childcare or Family Care: No Living arrangements: with family Occupation/Education: occupation Gender identity (if verbalized by the patient): Female Spiritual care concerns: No Exam Day of Procedure 09/30/24 01:46
--- NOTE | 2024-09-30 07:41 | WPDOBADMIT ---
Obstetrics - Admit Note Admission Note: record reviewed. No pertinent additions to the history and/or any subsequent changes in the physical findings that are not consistent with the expected course of the were found. Additions to the history and/or subsequent changes in the physical findings follow. ADMIT for SROM, forebag noted SVE 3/-2 AROM clear fluid, anticipate vaginal delivery
[2024-09-30] MEDS: LACTATED RINGERS 1,000 ML 125 ML IV CONT (11:04)
[2024-09-30] MEDS: AMPICILLIN 2 GM/NS 100 ML 2 GM/100 ML BAG IVPB (11:04)
[2024-09-30] MEDS: OXYTOCIN 30 UNITS/NS 500 ML 30 UNITS/500 ML BAG IV CONT (11:30)
[2024-09-30] MEDS: AMPICILLIN 1 GM/NS 50 ML 1 GM/50 ML BAG IVPB (15:25)
[2024-09-30] MEDS: OXYTOCIN 30 UNITS/NS 500 ML 30 UNITS/500 ML BAG 999 UNITS IV CONT (17:20)
--- NOTE | 2024-09-30 17:30 | PM.OBPRVD ---
OB - Vaginal Delivery Note Procedure Delivery date: 09/30/24 Delivery augmentation: Rupture of Membranes and Pitocin Delivery monitor: External FHT and External Uterine Route of delivery: Episiotomy description: None Laceration Description: Superficial Specimen: No Quantitative Blood Loss (ml): 75 Anesthesia type: Epidural Disposition: Floor Complications: No immediate complications Baby Date of : 09/30/24 Time of : 17:19 Gestational Age by Date: 38 gender: Female presentation: vertex position: Left Occiput Anterior Cord Vessel Description: 3 Vessels
[2024-09-30] MEDS: IBUPROFEN 600 MG TABLET PO ×2 (18:08→23:54)
[2024-09-30] MEDS: ACETAMINOPHEN 325 MG TABLET 650 MG PO ×2 (18:09→23:55)
[2024-09-30] MEDS: OXYTOCIN 30 UNITS/NS 500 ML 30 UNITS/500 ML BAG 125 UNITS IV CONT (18:10)
--- NOTE | 2024-09-30 21:07 | OBPPTRN ---
Patient transferred to post room #282 via wheelchair. Support person present. Oriented to unit, room, information board, rooming in, admission packet and security measures. Patient verbalizes understanding.
[2024-09-30] MEDS: WITCH HAZEL 40 PADS 1 PAD TOPICAL (22:14)
[2024-09-30] MEDS: BENZOCAINE 20% AER SPR (*SP) 56 GM CAN 1 SPRAY TOPICAL (22:14)
[2024-10-01 00:14] VITALS: BP 90/43; PULSE 85; RESP 18; TEMP 36.7; O2SAT 97
[2024-10-01 03:56] LABS: Hematocrit 34.6 % (37.0-47.0); Hemoglobin 11.2 g/dL (12.0-15.0)
[2024-10-01 04:05] VITALS: BP 100/60; PULSE 83; RESP 18; TEMP 36.5; O2SAT 98
--- NOTE | 2024-10-01 06:46 | P.PNOB_ITS ---
OB - PN: Subj Subjective Date/time seen: 10/01/24 06:46 Interval history: pp day 1 desires d/c home OB - PN: Obj Data Labs 10/01/24 03:23 Labs: Laboratory Results - last 24 hr 10/01/24 03:23 Hgb 11.2 L Hct 34.6 L OB - PN A/P Plan day: 1 Plan: routine care and discharge home Time Spent With Patient Time: Total time spent is greater than 50% in coordination of care (as documented) at patient's floor/unit and/or counseling patient: Review of Systems 2 Review of Systems: All systems reviewed & are unremarkable except as noted in HPI and below Exam 2 Const: General: cooperative, healthy appearing and comfortable Chest: Chest palpation & inspection: normal inspection of the chest Resp: Effort & Inspection: normal respiratory effort Cardio: Rate: regular rate
--- NOTE | 2024-10-01 06:47 | PM.OBDSVD ---
DS: Admitting Diagnosis Discharge Date 10/01/24 Admitting Diagnosis SROM DS: Discharge Diagnosis Discharge Diagnosis (1) Vaginal delivery: Code(s): O80 - Encounter for full-term uncomplicated delivery Status: Acute OB - DS: Summary OB Procedures : None OB Procedures Intrapartum: Spontaneous Vag Delivery OB Procedures: : None Peripartum Data Laceration Description: Superficial Episiotomy description: None Time Spent with Patient Time attestation: Total time spent providing and/or coordinating discharge services: DS: Data Data Completed and Pending Labs on day of discharge: Labs from last 24 hours 10/01/24 03:23 Hgb 11.2 L Hct 34.6 L Discharge Plan Discharge Attending physician on discharge: Corona Pacheco Discharging Clinician: Saira Ureña Patient Disposition: Home Activity: pelvic rest Diet: regular Patient Instructions: Antibiotic Form Patient Language: Barbadian Stand Alone Forms: General Discharge Information Follow-up/Referrals: Saira Ureña, CNM [Certified Nurse Wildlife Management Professor] - 4 Weeks Discharge Medications: Continued cetirizine [Zyrtec] 10 mg Tablet 10 mg PO DAILY prenat.vits,sneha,[id number] Tablet 1 tablet PO HS albuterol sulfate 90 mcg/actuation Hfa Aerosol Inhaler 2 puff INHALATION QID PRN (Reason: Wheezing) ibuprofen 600 mg Tablet 600 mg PO Q6H PRN (Reason: Cramping) Qty: 30 0RF Date of admission: 09/29/24 22:36 Primary Care Provider: PHYSICIAN,DOG OBEDIENCE INSTRUCTOR Admitting Provider: Reji Olivera Attending physician on admission: Saira Ureña Condition: Stable
[2024-10-01 08:25] VITALS: BP 103/74; PULSE 103; RESP 18; TEMP 36.7; O2SAT 98
--- NOTE | 2024-10-01 09:00 | PC.NURSE ---
Mother expressed the need for obtaining a breast pump for home. This RN was able to provide a Zomee breast pump utilizing patients insurance. Instructions given on cleaning, care, usage, that there should be no pain, pumping schedule for milk production, collection, and storage of human milk. Patient was assessed for correct placement, flange size, to pump for comfort and nipple stretching/stimulation for adequate milk production every 3 hours (8 times in 24 hours) 1-2 times at night. Mother states that she used the Zomee pump with her previous child and states that she was pleased with the pump and feels confident with using it. Parents are encouraged to record the pumping schedule on the feeding sheet.?
[2024-10-01] MEDS: ACETAMINOPHEN 325 MG TABLET 650 MG PO (09:01)
[2024-10-01] MEDS: DOCUSATE SODIUM 100 MG CAPSULE PO (09:01)
[2024-10-01] MEDS: LORATADINE 10 MG TABLET PO (09:01)
[2024-10-01] MEDS: MULTIVIT/MIN/PREN/FOL AC/IRON TABLET 1 TAB PO (09:01)
[2024-10-01] MEDS: IBUPROFEN 600 MG TABLET PO ×2 (09:01→14:31)
[2024-10-01 16:19] VITALS: BP 91/54; PULSE 92; RESP 19; TEMP 36.7; O2SAT 99
[2024-10-03 09:36] VITALS: BP 106/73; PULSE 100; RESP 18; TEMP 36.7; O2SAT 98
== END 2024-10-01 19:32 | disposition home or self-care (01) | DRG 807 ==
LOC: ANHOB2 10-01 06:47 → ANHLDR 10-02 10:55 → ANHOB2 10-02 10:55
PROVIDERS: Advanced Practice Midwife; Admitting Provider Obstetrics & Gynecology; Visit Provider Obstetrics & Gynecology
DX: O80 Encounter for full-term uncomplicated delivery (principal); Z37.0 Single live birth; Z3A.38 38 weeks gestation of pregnancy
CPT/HCPCS: 36415; 85014; 85018; 85025; 86593; 86703; 86762; 86850; 86900; 86901; A9270; G0432; J0290; J2590; J7120